=== PATIENT | male | born 1940 | race Caucasian/White ===

== ENCOUNTER 2017-12-07 16:51 | Emergency (ER) | payer MEDICARE, SELFPAY ==
[2017-12-07] MEDS ORDERED: Dexamethasone 4 MG TAB ONE (17:01)
[2017-12-07] MEDS ORDERED: Nystatin Cream 15 GM TUBE TOP PRN (17:27)
== END 2017-12-07 19:05 | disposition home or self-care (01) ==
LOC: MADERS 16:51
DX: B37.2 Candidiasis of skin and nail (principal); I11.0 Hypertensive heart disease with heart failure; I50.9 Heart failure, unspecified; E11.9 Type 2 diabetes mellitus without complications; M10.9 Gout, unspecified; E66.9 Obesity, unspecified; J44.9 Chronic obstructive pulmonary disease, unspecified
CPT/HCPCS: 99283; J8540

== ENCOUNTER 2017-12-20 12:49 | Emergency (ER) | payer MEDICARE ==
[2017-12-20] MEDS ORDERED: Dexamethasone 4 MG TAB ONE (13:11)
--- NOTE | 2017-12-20 14:11 | RAD ---
UPRIGHT PORTABLE CHEST 1 VIEW: Date: 12/20/17 HISTORY: 77-year-old male with history of dyspnea. FINDINGS: There is some underexposure and some motion artifact. There is elevation of the left hemidiaphragm. H eart size is upper range of normal. There appears to be some mild vascular congestion. No confluent p neumonia or overt edema. IMPRESSION: Somewhat less than optimal exposure with minimal motion artifact, as well as limitation because of la rge body habitus. Minimal left hemidiaphragm elevation. Mild vascular congestion, but no significant acute process. POS: [facility]
== END 2017-12-20 14:50 | disposition home or self-care (01) ==
LOC: MADERS 12:49
DX: J44.1 Chronic obstructive pulmonary disease with (acute) exacerbation (principal); I50.9 Heart failure, unspecified; E11.9 Type 2 diabetes mellitus without complications; I11.0 Hypertensive heart disease with heart failure; M10.9 Gout, unspecified; E66.9 Obesity, unspecified
CPT/HCPCS: 71045; J7620; J8540

== ENCOUNTER 2018-12-17 10:58 | Emergency (ER) | payer MEDICARE, MEDICAID ==
[2018-12-17 11:46] LABS: Bilirubin Negative (Negative); Blood, Urine Negative (Negative); Glucose, Urine (Dipstick) Negative (Negative); Leukocyte Trace (Negative); Nitrite Negative (Negative); Protein, Urine (Dipstick) Negative (Neg-Trace); Specific Gravity, Urine 1.015 (1.005-1.030); Urobilinogen 0.2 mg/dL (0.2-1.0)
[2018-12-17 11:51] LABS: #Basophils 0.1 thou/uL (0.0-0.2); #Eosinphils 0.3 thou/uL (0.0-0.7); #Lymphocytes 2.2 thou/uL (1.20-3.40); #Monocytes 0.6 thou/uL (0.11-0.59); %Eosinophils 4.1 % (0.0-10.0); %Lymphocytes 26.5 % (21.0-51.0); %Monocytes 7.8 % (0.0-10.0); %Neutrophils 60.7 % (42.0-75.0); Hemoglobin 13.7 g/dL (14.0-18.0); Mean Corpuscular HGB CONC 30.1 g/dL (32.0-36.0); Mean Corpuscular Hemoglobin 26.6 pg (27.0-31.0); Mean Corpuscular Volume 88.5 fL (78.0-98.0); Platelet Count 195 thou/uL (130-400); RBC Distribution Width 13.9 % (11.5-14.5); Red Blood Cell (RBC) Count 5.16 mill/uL (4.70-6.10); White Blood Cell (WBC) Count 8.3 thou/uL (4.8-10.8)
[2018-12-17] MEDS ORDERED: Iopamidol 370 76% 100 ML VIAL ONE (11:55)
[2018-12-17 11:56] LABS: Clarity Hazy (Clear)
[2018-12-17 11:58] LABS: Bacteria/HPF Rare-Few HPF (None Seen); RBC/HPF 0-3 HPF (0-3); Squamous Epithelial 0-3 HPF (0-3)
[2018-12-17 12:08] LABS: ALT (SGPT) 29 U/L (8-55); AST (SGOT) 25 U/L (5-34); Alkaline Phosphatase 99 U/L (40-150); Anion Gap 15 mmol/L (10-20); BUN (Urea Nitrogen) 17 mg/dL (8.4-25.7); Bilirubin, Total 0.6 mg/dL (0.2-1.2); Calc. Creatinine Clearance 0 mL/min (70-130); Calcium 9.2 mg/dL (7.8-10.44); Carbon Dioxide 26 mmol/L (23-31); Chloride 103 mmol/L (98-107); Estimated GFR-MDRD 69; Globulin 3.4 g/dL (2.4-3.5); Glucose 138 mg/dL (83-110); Lipase 52 U/L (8-78); Protein, Total 7.4 g/dL (5.8-8.1); Sodium 140 mmol/L (136-145)
--- NOTE | 2018-12-17 16:44 | CT ---
CT OF THE ABDOMEN AND PELVIS WITH IV CONTRAST: 12/17/18 INDICATION: Abdominal pain, constipation. COMPARISON: None. FINDINGS: There is subsegmental atelectasis within both lung bases. There is diffuse fatty liver. The pancreas, adrenal glands and spleen appear within normal limits. Th ere are small calcified granulomas within the spleen. The right kidney is normal appearing. There is a 2.1 cm hypodensity that does not have postcontrast CT Hounsfield characteristics of a simp le cyst. There is a simple cyst involving the superior pole left kidney measuring 1.7 cm. Other tiny hypodensity within the superior pole of the left kidney that cannot be further characterized due to their size. There are mild vascular calcifications involving the abdominal and pelvic vasculature. The bladder is partially decompressed. There is scattered diverticula involving the colon. No active diverticulitis is evident. There is a n ormal appendix in the right lower quadrant. Small bowel is normal appearing. There is a fat containin g umbilical hernia. No free fluid is evident. There is scattered degenerative and osteoarthritic change. There is diffuse osteopenia. IMPRESSION: 1. Left posterior mid renal hypodensity cannot be further characterized. Renal ultrasound is rec ommended. Complex cyst versus complex cystic mass cannot be entirely excluded. Simple cyst is seen wi thin the superior pole of the left kidney. 2. Fatty liver. 3. Colonic diverticulosis without evidence of active diverticulitis. 4. Small hiatal hernia. POS: [facility]
== END 2018-12-17 17:01 | disposition home or self-care (01) ==
LOC: MADERS 10:58
DX: K59.00 Constipation, unspecified (principal); E11.9 Type 2 diabetes mellitus without complications; I11.0 Hypertensive heart disease with heart failure; I50.9 Heart failure, unspecified; E66.9 Obesity, unspecified; M10.9 Gout, unspecified; J44.9 Chronic obstructive pulmonary disease, unspecified
CPT/HCPCS: 74177; 80053; 81003; 81015; 83605; 83690; 84484; 85025; 87086; 93005; Q9967

== ENCOUNTER 2019-01-11 08:50 | Emergency (ER) | payer MEDICARE, MEDICAID ==
[2019-01-11 09:23] LABS: #Eosinphils 0.5 thou/uL (0.0-0.7); #Monocytes 0.6 thou/uL (0.11-0.59); #Neutrophils 4.7 thou/uL (1.40-6.50); %Basophils 0.5 % (0.0-1.0); %Eosinophils 6.7 % (0.0-10.0); %Lymphocytes 25.1 % (21.0-51.0); %Monocytes 7.6 % (0.0-10.0); Hemoglobin 13.4 g/dL (14.0-18.0); Mean Corpuscular HGB CONC 30.3 g/dL (32.0-36.0); Mean Corpuscular Hemoglobin 26.4 pg (27.0-31.0); Mean Corpuscular Volume 87.3 fL (78.0-98.0); Mean Platelet Volume 10.4 fL (7.4-10.4); Platelet Count 186 thou/uL (130-400); RBC Distribution Width 13.9 % (11.5-14.5); Red Blood Cell (RBC) Count 5.07 mill/uL (4.70-6.10); White Blood Cell (WBC) Count 7.8 thou/uL (4.8-10.8)
[2019-01-11 09:26] LABS: Bilirubin Negative (Negative); Blood, Urine Negative (Negative); Clarity Clear (Clear); Glucose, Urine (Dipstick) Negative (Negative); Leukocyte Small (Negative); Nitrite Negative (Negative); Protein, Urine (Dipstick) Negative (Neg-Trace); Specific Gravity, Urine 1.015 (1.005-1.030); Urobilinogen 0.2 mg/dL (0.2-1.0)
[2019-01-11 09:32] LABS: Bacteria/HPF Rare-Few HPF (None Seen); RBC/HPF 0-3 HPF (0-3); Squamous Epithelial 0-3 HPF (0-3)
--- NOTE | 2019-01-11 09:42 | RAD ---
PORTABLE CHEST 1 VIEW: Date: 01/11/19 Time: 0916 hours HISTORY: Cough. FINDINGS: Comparison made with exam of 12/20/17. The heart size is upper limits of normal. Lungs are well expanded without lobar consolidation, pneumo thoraces, kishore pulmonary edema, or pleural effusions. IMPRESSION: No acute process. POS: [facility]
[2019-01-11 09:43] LABS: ALT (SGPT) 12 U/L (8-55); AST (SGOT) 13 U/L (5-34); Albumin 3.9 g/dL (3.4-4.8); Alkaline Phosphatase 82 U/L (40-150); Anion Gap 13 mmol/L (10-20); BUN (Urea Nitrogen) 18 mg/dL (8.4-25.7); Bilirubin, Total 0.3 mg/dL (0.2-1.2); Calc. Creatinine Clearance 0 mL/min (70-130); Calcium 8.9 mg/dL (7.8-10.44); Carbon Dioxide 28 mmol/L (23-31); Chloride 102 mmol/L (98-107); Estimated GFR-MDRD 63; Glucose 145 mg/dL (83-110); Lipase 62 U/L (8-78); Potassium 4.4 mmol/L (3.5-5.1); Protein, Total 6.9 g/dL (5.8-8.1); Sodium 139 mmol/L (136-145)
--- NOTE | 2019-01-11 10:19 | CT ---
CT ABDOMEN AND PELVIS WITHOUT CONTRAST: Date: 01/11/19 HISTORY: Bilateral lower quadrant abdominal pain and constipation. COMPARISON: Contrast enhanced CT scan of 12/17/18. FINDINGS: There are minimal dependent changes of the lung bases. A small hiatal hernia is again seen. Fatty inf iltration of the liver is redemonstrated. No calcified gallstones are seen. No free air or free fluid is noted in the abdomen or pelvis. No calculi seen in the kidneys, ureters, or the urinary bladder. No hydroureteronephrosis is noted on either side. Cysts in the left kidney are again seen. There is colonic diverticulosis without evidence of diverticulitis. Vascular calcifications are prese nt without evidence of aneurysmal dilatation of the abdominal aorta. There are degenerative changes i n the spine. A fat-containing small ventral hernia is again seen. IMPRESSION: 1. No CT evidence of urinary tract calculi or obstruction. 2. Left renal cysts. 3. Colonic diverticulosis. 4. Small hiatal hernia. 5. Fatty liver. 6. Fat-containing small ventral hernia. POS: OFF
[2019-01-11] MEDS ORDERED: Ciprofloxacin 500 MG TAB ONE (10:51)
== END 2019-01-11 15:45 | disposition home or self-care (01) ==
LOC: MADERS 08:50
DX: N39.0 Urinary tract infection, site not specified (principal); I11.0 Hypertensive heart disease with heart failure; I50.9 Heart failure, unspecified; D64.9 Anemia, unspecified; M10.9 Gout, unspecified; E11.9 Type 2 diabetes mellitus without complications; J44.9 Chronic obstructive pulmonary disease, unspecified; E66.9 Obesity, unspecified; Z79.84 Long term (current) use of oral hypoglycemic drugs; Z79.899 Other long term (current) drug therapy
CPT/HCPCS: 71045; 74176; 80053; 81003; 81015; 83690; 83880; 84484; 85025; 87077; 87086; 93005; J7620

== ENCOUNTER 2019-02-08 14:10 | Emergency (ER) | payer MEDICARE, OTHER ==
[2019-02-08 14:54] LABS: #Basophils 0.1 thou/uL (0.0-0.2); #Eosinphils 0.3 thou/uL (0.0-0.7); #Lymphocytes 2.4 thou/uL (1.20-3.40); #Monocytes 0.6 thou/uL (0.11-0.59); #Neutrophils 4.5 thou/uL (1.40-6.50); %Basophils 0.7 % (0.0-1.0); %Eosinophils 4.3 % (0.0-10.0); %Lymphocytes 30.1 % (21.0-51.0); %Monocytes 7.6 % (0.0-10.0); %Neutrophils 57.3 % (42.0-75.0); Hemoglobin 14.1 g/dL (14.0-18.0); Mean Corpuscular HGB CONC 29.9 g/dL (32.0-36.0); Mean Corpuscular Hemoglobin 26.2 pg (27.0-31.0); Mean Corpuscular Volume 87.6 fL (78.0-98.0); Mean Platelet Volume 9.5 fL (7.4-10.4); Platelet Count 192 thou/uL (130-400); RBC Distribution Width 13.9 % (11.5-14.5); Red Blood Cell (RBC) Count 5.37 mill/uL (4.70-6.10); White Blood Cell (WBC) Count 7.9 thou/uL (4.8-10.8)
[2019-02-08 14:58] LABS: Bilirubin Negative (Negative); Blood, Urine Trace (Negative); Clarity Hazy (Clear); Glucose, Urine (Dipstick) Negative (Negative); Leukocyte Small (Negative); Nitrite Negative (Negative); Protein, Urine (Dipstick) Negative (Neg-Trace); Urobilinogen 0.2 mg/dL (Less than 2)
[2019-02-08 15:01] LABS: Bacteria/HPF Rare-Few HPF (None Seen); RBC/HPF 0-3 HPF (0-3); Squamous Epithelial 0-3 HPF (0-3)
--- NOTE | 2019-02-08 15:06 | RAD ---
EXAM: CHEST ONE VIEW: 02/08/19 HISTORY: Cough. COMPARISON: 01/11/19. FINDINGS: Extensive horizontal linear artifact lowers the sensitivity of this study. Mild bilateral vascular co ngestion. No confluent pneumonia, overt edema, or pleural effusion. IMPRESSION: Evidence for bilateral vascular congestion, stable from prior study. No significant new process. POS: [facility]
[2019-02-08 15:11] LABS: ALT (SGPT) 10 U/L (8-55); AST (SGOT) 14 U/L (5-34); Alkaline Phosphatase 86 U/L (40-150); Anion Gap 18 mmol/L (10-20); BUN (Urea Nitrogen) 24 mg/dL (8.4-25.7); Bilirubin, Total 0.3 mg/dL (0.2-1.2); CK (CPK) 161 U/L (30-200); Calc. Creatinine Clearance 0 mL/min (70-130); Carbon Dioxide 27 mmol/L (23-31); Chloride 102 mmol/L (98-107); Estimated GFR-MDRD 49; Globulin 3.2 g/dL (2.4-3.5); Glucose 114 mg/dL (83-110); Lipase 59 U/L (8-78); Potassium 4.5 mmol/L (3.5-5.1); Protein, Total 7.2 g/dL (5.8-8.1); Sodium 142 mmol/L (136-145)
[2019-02-08] MEDS ORDERED: cefTRIAXone\\ROCEPHIN 1 GM VIAL ONE (15:26)
[2019-02-08] MEDS ORDERED: Lidocaine 1% 20 ML MDV ONE (15:27)
== END 2019-02-08 17:45 | disposition home or self-care (01) ==
LOC: MADERS 14:10
DX: N39.0 Urinary tract infection, site not specified (principal); R53.1 Weakness; I11.0 Hypertensive heart disease with heart failure; I50.9 Heart failure, unspecified; E66.9 Obesity, unspecified; E11.9 Type 2 diabetes mellitus without complications; J44.9 Chronic obstructive pulmonary disease, unspecified; Z79.899 Other long term (current) drug therapy; Z79.84 Long term (current) use of oral hypoglycemic drugs
CPT/HCPCS: 36415; 71045; 80053; 81003; 81015; 82550; 83605; 83690; 84484; 85025; 87077; 87086; 87186; 93005; 96372; J0696; J2001

== ENCOUNTER 2019-02-18 10:50 | Emergency (ER) | payer MEDICARE, MEDICAID ==
[2019-02-18 11:14] LABS: Bilirubin Negative (Negative); Blood, Urine Negative (Negative); Clarity Clear (Clear); Glucose, Urine (Dipstick) Negative (Negative); Leukocyte Small (Negative); Nitrite Negative (Negative); Protein, Urine (Dipstick) Negative (Neg-Trace); Urobilinogen 0.2 mg/dL (Less than 2)
--- NOTE | 2019-02-18 11:21 | RAD ---
XR Chest 1 View Portable History: Cough Comparison: Radiograph February 08, 2019 Findings: Heart size continues to be enlarged. Mild pulmonary venous congestion. No pneumothorax. No significant effusion. No acute osseous abnormality. Impression: Similar examination of the chest.
[2019-02-18 11:35] LABS: RBC/HPF 0-3 HPF (0-3)
[2019-02-18 11:36] LABS: Bacteria/HPF 1+ HPF (None Seen); Squamous Epithelial 0-3 HPF (0-3)
[2019-02-18 11:43] LABS: #Eosinphils 0.3 thou/uL (0.0-0.7); #Lymphocytes 2.1 thou/uL (1.20-3.40); #Monocytes 0.6 thou/uL (0.11-0.59); #Neutrophils 4.2 thou/uL (1.40-6.50); %Basophils 0.5 % (0.0-1.0); %Eosinophils 4.5 % (0.0-10.0); %Lymphocytes 29.2 % (21.0-51.0); %Monocytes 8.2 % (0.0-10.0); %Neutrophils 57.6 % (42.0-75.0); Hemoglobin 13.1 g/dL (14.0-18.0); Mean Corpuscular HGB CONC 30.9 g/dL (32.0-36.0); Mean Corpuscular Hemoglobin 26.7 pg (27.0-31.0); Mean Corpuscular Volume 86.6 fL (78.0-98.0); Mean Platelet Volume 9.4 fL (7.4-10.4); Platelet Count 174 thou/uL (130-400); RBC Distribution Width 13.9 % (11.5-14.5); Red Blood Cell (RBC) Count 4.89 mill/uL (4.70-6.10); White Blood Cell (WBC) Count 7.3 thou/uL (4.8-10.8)
[2019-02-18 11:58] LABS: ALT (SGPT) 17 U/L (8-55); AST (SGOT) 15 U/L (5-34); Albumin 3.8 g/dL (3.4-4.8); Alkaline Phosphatase 79 U/L (40-150); Anion Gap 15 mmol/L (10-20); BUN (Urea Nitrogen) 17 mg/dL (8.4-25.7); Bilirubin, Total 0.5 mg/dL (0.2-1.2); Calc. Creatinine Clearance 0 mL/min (70-130); Calcium 8.9 mg/dL (7.8-10.44); Carbon Dioxide 26 mmol/L (23-31); Chloride 105 mmol/L (98-107); Estimated GFR-MDRD 68; Globulin 2.9 g/dL (2.4-3.5); Glucose 145 mg/dL (83-110); Protein, Total 6.7 g/dL (5.8-8.1); Sodium 142 mmol/L (136-145)
== END 2019-02-18 13:47 | disposition home or self-care (01) ==
LOC: MADERS 10:50
DX: N39.0 Urinary tract infection, site not specified (principal); I11.0 Hypertensive heart disease with heart failure; E11.9 Type 2 diabetes mellitus without complications; I50.9 Heart failure, unspecified; E66.9 Obesity, unspecified; J44.9 Chronic obstructive pulmonary disease, unspecified; Z79.899 Other long term (current) drug therapy; Z79.891 Long term (current) use of opiate analgesic; Z79.84 Long term (current) use of oral hypoglycemic drugs
CPT/HCPCS: 36415; 71045; 80053; 81003; 81015; 83605; 83880; 84484; 85025; 87040; 87086; 93005; 94760

== ENCOUNTER 2019-03-01 20:56 | Emergency (ER) | payer MEDICARE, MEDICAID ==
[2019-03-01] MEDS ORDERED: Ondansetron ODT 4 MG TAB ONE (21:13)
[2019-03-01 21:29] LABS: Bilirubin Negative (Negative); Blood, Urine Negative (Negative); Clarity Clear (Clear); Glucose, Urine (Dipstick) Negative (Negative); Leukocyte Negative (Negative); Nitrite Negative (Negative); Protein, Urine (Dipstick) Negative (Neg-Trace); Urobilinogen 0.2 mg/dL (Less than 2)
[2019-03-01 21:29] LABS: #Basophils 0.1 thou/uL (0.0-0.2); #Eosinphils 0.5 thou/uL (0.0-0.7); #Lymphocytes 2.5 thou/uL (1.20-3.40); #Monocytes 0.7 thou/uL (0.11-0.59); %Basophils 0.9 % (0.0-1.0); %Eosinophils 5.2 % (0.0-10.0); %Lymphocytes 28.2 % (21.0-51.0); %Monocytes 8.2 % (0.0-10.0); %Neutrophils 57.6 % (42.0-75.0); Hemoglobin 12.9 g/dL (14.0-18.0); Mean Corpuscular HGB CONC 31.1 g/dL (32.0-36.0); Mean Platelet Volume 10.8 fL (7.4-10.4); Platelet Count 164 thou/uL (130-400); RBC Distribution Width 14.4 % (11.5-14.5); Red Blood Cell (RBC) Count 4.76 mill/uL (4.70-6.10); White Blood Cell (WBC) Count 8.7 thou/uL (4.8-10.8)
[2019-03-01 21:43] LABS: ALT (SGPT) 10 U/L (8-55); AST (SGOT) 14 U/L (5-34); Albumin 3.8 g/dL (3.4-4.8); Alkaline Phosphatase 73 U/L (40-150); Anion Gap 17 mmol/L (10-20); BUN (Urea Nitrogen) 28 mg/dL (8.4-25.7); Bilirubin, Total 0.2 mg/dL (0.2-1.2); Calc. Creatinine Clearance 0 mL/min (70-130); Calcium 9.1 mg/dL (7.8-10.44); Carbon Dioxide 25 mmol/L (23-31); Chloride 103 mmol/L (98-107); Estimated GFR-MDRD 41; Globulin 3.2 g/dL (2.4-3.5); Glucose 152 mg/dL (83-110); Lipase 72 U/L (8-78); Potassium 4.7 mmol/L (3.5-5.1); Sodium 140 mmol/L (136-145)
== END 2019-03-01 22:00 | disposition home or self-care (01) ==
LOC: MADERS 20:56
DX: E86.0 Dehydration (principal); R11.0 Nausea; M10.9 Gout, unspecified; E11.9 Type 2 diabetes mellitus without complications; I11.0 Hypertensive heart disease with heart failure; I50.9 Heart failure, unspecified; E66.9 Obesity, unspecified; J44.9 Chronic obstructive pulmonary disease, unspecified; Z79.899 Other long term (current) drug therapy; Z79.84 Long term (current) use of oral hypoglycemic drugs; Z79.51 Long term (current) use of inhaled steroids
CPT/HCPCS: 36415; 80053; 81003; 83690; 85025; 99284; Q0162

== ENCOUNTER → 2019-03-23 | Emergency (ER) | payer MEDICARE, MEDICAID ==
[~2019-03-23] MED LIST: predniSONE 20 MG TAB ONE
[2019-03-23 01:45] LABS: #Basophils 0.1 thou/uL (0.0-0.2); #Eosinphils 0.5 thou/uL (0.0-0.7); #Monocytes 0.6 thou/uL (0.11-0.59); %Basophils 0.9 % (0.0-1.0); %Eosinophils 4.6 % (0.0-10.0); %Lymphocytes 29.4 % (21.0-51.0); %Monocytes 6.1 % (0.0-10.0); %Neutrophils 59.1 % (42.0-75.0); Hemoglobin 14.1 g/dL (14.0-18.0); Mean Corpuscular Hemoglobin 26.9 pg (27.0-31.0); Mean Corpuscular Volume 86.8 fL (78.0-98.0); Mean Platelet Volume 11.2 fL (7.4-10.4); Platelet Count 184 thou/uL (130-400); RBC Distribution Width 14.5 % (11.5-14.5); Red Blood Cell (RBC) Count 5.25 mill/uL (4.70-6.10); White Blood Cell (WBC) Count 10.2 thou/uL (4.8-10.8)
[2019-03-23 02:05] LABS: ALT (SGPT) 15 U/L (8-55); AST (SGOT) 16 U/L (5-34); Albumin 4.1 g/dL (3.4-4.8); Alkaline Phosphatase 95 U/L (40-150); Anion Gap 19 mmol/L (10-20); BUN (Urea Nitrogen) 18 mg/dL (8.4-25.7); Bilirubin, Total 0.5 mg/dL (0.2-1.2); CK (CPK) 198 U/L (30-200); Calc. Creatinine Clearance 0 mL/min (70-130); Calcium 8.9 mg/dL (7.8-10.44); Carbon Dioxide 22 mmol/L (23-31); Chloride 103 mmol/L (98-107); Estimated GFR-MDRD 56; Globulin 2.9 g/dL (2.4-3.5); Glucose 163 mg/dL (83-110); Lipase 44 U/L (8-78); Potassium 3.8 mmol/L (3.5-5.1); Sodium 140 mmol/L (136-145)
--- NOTE | 2019-03-23 08:15 | RAD ---
EXAM: Single view of the chest HISTORY: Dyspnea COMPARISON: 02/18/2019 FINDINGS: Single view of the chest shows a normal sized cardiomediastinal silhouette. There is no juanito dence of consolidation, mass, or pleural effusion. The bones are unremarkable. IMPRESSION: No evidence of acute cardiopulmonary disease
== END ==
LOC: MADERS 01:04
DX: J44.1 Chronic obstructive pulmonary disease with (acute) exacerbation (principal); I11.0 Hypertensive heart disease with heart failure; I50.9 Heart failure, unspecified; E11.9 Type 2 diabetes mellitus without complications; E66.9 Obesity, unspecified; Z79.899 Other long term (current) drug therapy; Z79.84 Long term (current) use of oral hypoglycemic drugs
CPT/HCPCS: 71045; 80053; 82550; 83690; 83880; 84484; 85025; J7512; J7620

== ENCOUNTER 2019-05-03 02:25 | Emergency (ER) | payer MEDICARE, MEDICAID ==
[2019-05-03 03:35] LABS: Bilirubin Negative (Negative); Blood, Urine Trace (Negative); Clarity Slightly Cloudy (Clear); Glucose, Urine (Dipstick) Negative (Negative); Leukocyte Moderate (Negative); Nitrite Positive (Negative); Protein, Urine (Dipstick) Negative (Neg-Trace); RBC/HPF 0-3 HPF (0-3); Squamous Epithelial 0-3 HPF (0-3); Urobilinogen 0.2 mg/dL (Less than 2); WBC/HPF 21-50 HPF (0-3)
[2019-05-03 03:36] LABS: Bacteria/HPF 3+ HPF (None Seen)
== END 2019-05-03 10:20 | disposition home or self-care (01) ==
LOC: MADERS 02:25
DX: N39.0 Urinary tract infection, site not specified (principal); I11.0 Hypertensive heart disease with heart failure; I50.9 Heart failure, unspecified; E11.9 Type 2 diabetes mellitus without complications; J44.9 Chronic obstructive pulmonary disease, unspecified; M10.9 Gout, unspecified; E66.9 Obesity, unspecified; Z79.899 Other long term (current) drug therapy; Z79.84 Long term (current) use of oral hypoglycemic drugs
CPT/HCPCS: 81003; 81015; 99284; J7620

== ENCOUNTER 2019-07-20 08:54 | Emergency (ER) | payer MEDICAID, MEDICARE ==
[2019-07-20] MEDS ORDERED: predniSONE 20 MG TAB ONE (10:03)
--- NOTE | 2019-07-20 10:19 | RAD ---
EXAM: Single view of the chest HISTORY: Cough COMPARISON: 03/23/2019 FINDINGS: Single view of the chest shows a normal sized cardiomediastinal silhouette. There is no juanito dence of consolidation, mass, or pleural effusion. The bones are unremarkable. IMPRESSION: No evidence of acute cardiopulmonary disease
[2019-07-20 11:30] LABS: Bilirubin Negative (Negative); Blood, Urine Trace (Negative); Clarity Slightly Cloudy (Clear); Glucose, Urine (Dipstick) Negative (Negative); Leukocyte Moderate (Negative); Nitrite Positive (Negative); Protein, Urine (Dipstick) Negative (Neg-Trace); Urobilinogen 0.2 mg/dL (Less than 2)
[2019-07-20 11:38] LABS: Bacteria/HPF 4+ HPF (None Seen); RBC/HPF 0-3 HPF (0-3); Squamous Epithelial 0-3 HPF (0-3); WBC/HPF Greater Than 50 HPF (0-3)
== END 2019-07-20 11:40 | disposition home or self-care (01) ==
LOC: MADERS 08:54
DX: J44.1 Chronic obstructive pulmonary disease with (acute) exacerbation (principal); N39.0 Urinary tract infection, site not specified; I11.0 Hypertensive heart disease with heart failure; I50.9 Heart failure, unspecified; E11.9 Type 2 diabetes mellitus without complications; E66.9 Obesity, unspecified; Z79.84 Long term (current) use of oral hypoglycemic drugs; Z79.51 Long term (current) use of inhaled steroids; Z79.899 Other long term (current) drug therapy
CPT/HCPCS: 71045; 81003; 81015; 87077; 87086; 87186; 87804; 94640; J7512; J7620

== ENCOUNTER 2019-09-22 20:19 | Emergency (ER) | payer MEDICARE ==
[2019-09-22 22:36] LABS: INR-International Normal Ratio 1.1; Prothrombin Time 14.3 SEC (12.0-14.7)
[2019-09-22 22:41] LABS: #Basophils 0.1 thou/uL (0.0-0.2); #Eosinphils 0.4 thou/uL (0.0-0.7); #Lymphocytes 1.9 thou/uL (1.20-3.40); #Monocytes 0.8 thou/uL (0.11-0.59); #Neutrophils 6.5 thou/uL (1.40-6.50); %Basophils 0.7 % (0.0-1.0); %Eosinophils 3.9 % (0.0-10.0); %Lymphocytes 19.3 % (21.0-51.0); %Monocytes 8.1 % (0.0-10.0); Hemoglobin 12.4 g/dL (14.0-18.0); Hypochromia SLIGHT = 6-15 cells (100X) (0-5/hpf); MDiff Complete? YES; Mean Corpuscular Hemoglobin 26.5 pg (27.0-31.0); Mean Corpuscular Volume 88.4 fL (78.0-98.0); Mean Platelet Volume 9.9 fL (7.4-10.4); Platelet Count 179 thou/uL (130-400); Platelet Morphology Comment Appears Adequate; RBC Distribution Width 13.2 % (11.5-14.5); Red Blood Cell (RBC) Count 4.67 mill/uL (4.70-6.10); Stomatocytes SLIGHT = 2-5 cells (100X) (0-1/hpf); White Blood Cell (WBC) Count 9.6 thou/uL (4.8-10.8)
[2019-09-22 22:47] LABS: ALT (SGPT) 16 U/L (8-55); AST (SGOT) 12 U/L (5-34); Albumin 3.7 g/dL (3.4-4.8); Alkaline Phosphatase 71 U/L (40-110); Anion Gap 17 mmol/L (10-20); BUN (Urea Nitrogen) 49 mg/dL (8.4-25.7); Bilirubin, Total 0.3 mg/dL (0.2-1.2); Calc. Creatinine Clearance 0 mL/min (70-130); Calcium 8.9 mg/dL (7.8-10.44); Carbon Dioxide 23 mmol/L (23-31); Chloride 105 mmol/L (98-107); Estimated GFR-MDRD 18; Glucose 152 mg/dL (83-110); Potassium 4.5 mmol/L (3.5-5.1); Protein, Total 6.7 g/dL (5.8-8.1); Sodium 140 mmol/L (136-145)
== END 2019-09-23 01:40 | disposition short-term general hospital (02) ==
LOC: MADERS 20:19
DX: I11.0 Hypertensive heart disease with heart failure (principal); I50.9 Heart failure, unspecified; N17.9 Acute kidney failure, unspecified; E11.9 Type 2 diabetes mellitus without complications; J44.9 Chronic obstructive pulmonary disease, unspecified; M10.9 Gout, unspecified; Z87.891 Personal history of nicotine dependence; Z79.899 Other long term (current) drug therapy; Z79.84 Long term (current) use of oral hypoglycemic drugs
CPT/HCPCS: 80053; 83880; 85025; 85610; 99285

== ENCOUNTER 2019-10-14 17:59 | Emergency (ER) | payer MEDICARE ==
[~2019-10-14 17:59] MED LIST changes: +Sodium Chloride 0.9% 1,000 ML BAG ONE; -predniSONE 20 MG TAB ONE
[2019-10-14 19:03] LABS: #Basophils 0.1 thou/uL (0.0-0.2); #Lymphocytes 2.1 thou/uL (1.20-3.40); #Monocytes 0.8 thou/uL (0.11-0.59); #Neutrophils 6.6 thou/uL (1.40-6.50); %Basophils 1.4 % (0.0-1.0); %Lymphocytes 21.5 % (21.0-51.0); %Monocytes 8.5 % (0.0-10.0); %Neutrophils 68.7 % (42.0-75.0); Hemoglobin 12.5 g/dL (14.0-18.0); Mean Corpuscular HGB CONC 29.5 g/dL (32.0-36.0); Mean Corpuscular Hemoglobin 26.5 pg (27.0-31.0); Mean Corpuscular Volume 89.8 fL (78.0-98.0); Platelet Count 206 thou/uL (130-400); RBC Distribution Width 13.6 % (11.5-14.5); Red Blood Cell (RBC) Count 4.73 mill/uL (4.70-6.10); White Blood Cell (WBC) Count 9.6 thou/uL (4.8-10.8)
[2019-10-14 19:16] LABS: ALT (SGPT) 13 U/L (8-55); AST (SGOT) 12 U/L (5-34); Albumin 3.7 g/dL (3.4-4.8); Alkaline Phosphatase 77 U/L (40-110); Anion Gap 21 mmol/L (10-20); BUN (Urea Nitrogen) 41 mg/dL (8.4-25.7); Bilirubin, Total 0.4 mg/dL (0.2-1.2); Calc. Creatinine Clearance 0 mL/min (70-130); Calcium 8.8 mg/dL (7.8-10.44); Carbon Dioxide 18 mmol/L (23-31); Chloride 104 mmol/L (98-107); Estimated GFR-MDRD 8; Globulin 3.2 g/dL (2.4-3.5); Glucose 154 mg/dL (83-110); Lipase 46 U/L (8-78); Potassium 4.5 mmol/L (3.5-5.1); Protein, Total 6.9 g/dL (5.8-8.1); Sodium 138 mmol/L (136-145)
[2019-10-14 20:50] LABS: Digoxin 2.43 ng/mL (0.8-2.0)
== END 2019-10-14 21:15 | disposition short-term general hospital (02) ==
LOC: MADERS 17:59
DX: R10.9 Unspecified abdominal pain (principal); T46.0X5A Adverse effect of cardiac-stimulant glycosides and drugs of similar action, initial encounter; N17.9 Acute kidney failure, unspecified; I11.0 Hypertensive heart disease with heart failure; I50.9 Heart failure, unspecified; J45.909 Unspecified asthma, uncomplicated; M10.9 Gout, unspecified; Z87.891 Personal history of nicotine dependence; Z79.84 Long term (current) use of oral hypoglycemic drugs; Z79.899 Other long term (current) drug therapy
CPT/HCPCS: 80053; 80162; 82150; 83690; 85025; 93005; 96360; 96361; J7050

== ENCOUNTER 2019-12-26 12:11 | Emergency (ER) | payer MEDICARE ==
[2019-12-26 12:58] LABS: Bilirubin Negative (Negative); Blood, Urine Negative (Negative); Glucose, Urine (Dipstick) Negative (Negative); Leukocyte Small (Negative); Nitrite Negative (Negative); Protein, Urine (Dipstick) Negative (Neg-Trace); Urobilinogen 0.2 mg/dL (Less than 2)
[2019-12-26 13:00] LABS: #Eosinphils 0.4 thou/uL (0.0-0.7); #Monocytes 0.6 thou/uL (0.11-0.59); #Neutrophils 4.1 thou/uL (1.40-6.50); %Basophils 0.5 % (0.0-1.0); %Lymphocytes 27.8 % (21.0-51.0); %Monocytes 8.8 % (0.0-10.0); %Neutrophils 57.8 % (42.0-75.0); Mean Corpuscular HGB CONC 29.9 g/dL (32.0-36.0); Mean Corpuscular Hemoglobin 26.5 pg (27.0-31.0); Mean Corpuscular Volume 88.7 fL (78.0-98.0); Mean Platelet Volume 11.3 fL (7.4-10.4); Platelet Count 209 thou/uL (130-400); RBC Distribution Width 13.6 % (11.5-14.5); White Blood Cell (WBC) Count 7.1 thou/uL (4.8-10.8)
[2019-12-26 13:02] LABS: Clarity Hazy (Clear)
[2019-12-26 13:04] LABS: Bacteria/HPF 1+ HPF (None Seen); RBC/HPF None Seen HPF (0-3); Squamous Epithelial 0-3 HPF (0-3); WBC/HPF 21-50 HPF (0-3)
[2019-12-26 13:16] LABS: ALT (SGPT) 13 U/L (8-55); AST (SGOT) 12 U/L (5-34); Albumin 3.7 g/dL (3.4-4.8); Alkaline Phosphatase 93 U/L (40-110); Anion Gap 12 mmol/L (10-20); BUN (Urea Nitrogen) 17 mg/dL (8.4-25.7); Bilirubin, Total 0.3 mg/dL (0.2-1.2); CK (CPK) 101 U/L (30-200); Calc. Creatinine Clearance 0 mL/min (70-130); Calcium 8.9 mg/dL (7.8-10.44); Carbon Dioxide 28 mmol/L (23-31); Chloride 103 mmol/L (98-107); Estimated GFR-MDRD 59; Globulin 3.2 g/dL (2.4-3.5); Glucose 253 mg/dL (83-110); Potassium 4.3 mmol/L (3.5-5.1); Protein, Total 6.9 g/dL (5.8-8.1); Sodium 139 mmol/L (136-145)
--- NOTE | 2019-12-26 14:41 | RAD ---
PORTABLE UPRIGHT FRONTAL CHEST RADIOGRAPH: Date: 12-26-2019 Comparison: 08-29-2019 History: Weakness FINDINGS: There is stable prominence of the cardiac silhouette and stable mild perihilar interstitial prominenc e. There is also stable mild pulmonary hyperinflation. No pneumothorax, pleural fluid, focal consolid ation or alveolar edema is noted. Detailed assessment is limited on the basis of portable technique, body habitus and horizontally oriented artifact. IMPRESSION: Grossly unchanged portable frontal chest radiograph. No lobar consolidation or alveolar edema. POS: [facility]
== END 2019-12-26 13:45 | disposition home or self-care (01) ==
LOC: MADERS 12:11
DX: N39.0 Urinary tract infection, site not specified (principal); E11.9 Type 2 diabetes mellitus without complications; I11.0 Hypertensive heart disease with heart failure; I50.9 Heart failure, unspecified; J44.9 Chronic obstructive pulmonary disease, unspecified; Z79.84 Long term (current) use of oral hypoglycemic drugs; Z79.899 Other long term (current) drug therapy
CPT/HCPCS: 36415; 71045; 80053; 81003; 81015; 82550; 83880; 84484; 85025; 87077; 87086; 87186; 93005

== ENCOUNTER 2020-01-26 04:28 | Emergency (ER) | payer MEDICARE ==
[2020-01-26 05:24] LABS: #Basophils 0.1 thou/uL (0.0-0.2); #Eosinphils 0.4 thou/uL (0.0-0.7); #Lymphocytes 2.5 thou/uL (1.20-3.40); #Monocytes 0.7 thou/uL (0.11-0.59); #Neutrophils 4.1 thou/uL (1.40-6.50); %Basophils 0.7 % (0.0-1.0); %Eosinophils 5.1 % (0.0-10.0); %Lymphocytes 32.4 % (21.0-51.0); %Monocytes 8.9 % (0.0-10.0); %Neutrophils 52.8 % (42.0-75.0); Mean Corpuscular Hemoglobin 26.7 pg (27.0-31.0); Mean Corpuscular Volume 88.8 fL (78.0-98.0); Mean Platelet Volume 11.6 fL (7.4-10.4); Platelet Count 209 thou/uL (130-400); RBC Distribution Width 13.5 % (11.5-14.5); Red Blood Cell (RBC) Count 5.23 mill/uL (4.70-6.10); White Blood Cell (WBC) Count 7.7 thou/uL (4.8-10.8)
[2020-01-26 05:39] LABS: Bilirubin Negative (Negative); Blood, Urine Negative (Negative); Clarity Clear (Clear); Glucose, Urine (Dipstick) Negative (Negative); Ketone, Urine Negative (Negative); Leukocyte Small (Negative); Nitrite Positive (Negative); Protein, Urine (Dipstick) Negative (Neg-Trace); Urobilinogen 0.2 mg/dL (Less than 2); pH, Urine 8.5 (5.0-9.0)
[2020-01-26 05:42] LABS: ALT (SGPT) 13 U/L (8-55); AST (SGOT) 15 U/L (5-34); Alkaline Phosphatase 98 U/L (40-110); Anion Gap 14 mmol/L (10-20); BUN (Urea Nitrogen) 16 mg/dL (8.4-25.7); Bilirubin, Total 0.2 mg/dL (0.2-1.2); Calc. Creatinine Clearance 0 mL/min (70-130); Calcium 9.1 mg/dL (7.8-10.44); Carbon Dioxide 28 mmol/L (23-31); Chloride 101 mmol/L (98-107); Globulin 3.2 g/dL (2.4-3.5); Glucose 174 mg/dL (83-110); Lipase 48 U/L (8-78); Potassium 4.3 mmol/L (3.5-5.1); Protein, Total 7.2 g/dL (5.8-8.1); Sodium 139 mmol/L (136-145)
[2020-01-26 05:47] LABS: RBC/HPF 0-3 HPF (0-3)
[2020-01-26 05:48] LABS: Bacteria/HPF 3+ HPF (None Seen); Squamous Epithelial 0-3 HPF (0-3); WBC/HPF 21-50 HPF (0-3)
[2020-01-26] MEDS ORDERED: Morphine 4 MG/ML VIAL ONE (06:26)
[2020-01-26] MEDS ORDERED: Sodium Chloride 0.9% 100 ML ONE (07:13)
[2020-01-26] MEDS ORDERED: cefTRIAXone\\ROCEPHIN 1 GM VIAL ONE (07:13)
--- NOTE | 2020-01-26 07:15 | CT ---
PRELIMINARY REPORT/[facility]/EMERGENCY AFTER HOURS PROCEDURE CT ABDOMEN PELVIS WO CON History: Supra pubic pain x 3 weeks with constipation Comparison: None Findings: Lung bases are clear. Osteopenia with degenerative changes throughout. No acute osseous abnormality. Prominent Schmorl's nodes involving the superior endplate of L5 inferior endplate of L4. Small to moderate hiatal hernia. Abdominal aorta is normal in caliber with atherosclerotic changes. Gallbladder is contracted. No biliary ductal dilatation. Liver, spleen, pancreas and adrenal glands are unremarkable. Ill-defined rounded hypodensities in the left kidney are incompletely evaluated without contrast. No evidence of ureteral calculus or hydronephrosis. Urinary bladder is underdistended with mild wall prominence. Correlate with UA. Prostate not enlarged. Calcifications are present. Appendix is noninflammatory. A normal caliber. No evidence of small bowel obstruction. There is diverticulosis of the colon without evidence of acute diverticulitis. No pericolonic infla mmation. Fat-containing umbilical hernia. No bowel herniation. Impression: 1. No CT evidence of acute appendicitis, small bowel obstruction or acute diverticulitis. Underdist ention of the colon limits evaluation. No focal pericolonic inflammation identified. 2. Mild wall prominence of the urinary bladder which is underdistended. Correlate with UA. No evid ence of hydronephrosis. Rounded hypodensities of the left kidney may represent cysts, however are incompletely characterized without contrast. Followup per final report recommendations. 3. Hiatal hernia. 4. Contracted gallbladder. No biliary ductal dilatation. 5. Additional findings, as above. ELECTRONICALLY SIGNED BY: James Lake DO Jan 26, 2020 6:44:14 AM CDT This report is intended for review by the ordering physician only, in accordance of law. If you recei ve this report in error, please call [facility] at [phone]. FINAL REPORT Exam: Abdomen CT without contrast Pelvic CT without contrast HISTORY: Suprapubic pain x3 weeks. Constipation. COMPARISON: 01/11/2019 FINDINGS: Abdomen CT: Lung bases:Chronic changes Heart size: Normal heart size Aorta: Normal caliber. Solid organs: Limited evaluation by the lack of intravenous contrast. Grossly no solid organ abnormal ity Lymph nodes: No gastrohepatic, retrocrural or periportal lymphadenopathy Gallbladder: No CT evidence of cholelithiasis or cholecystitis Mesentery: No mass, lymphadenopathy, free air or free fluid Kidneys: Bilaterally, no hydronephrosis, nephrolithiasis or perinephric fat stranding. Bilateral uret ers have a normal caliber. No hydroureter, periureteral fat stranding or ureterolithiasis. Stable left renal cyst. Alimentary canal: Limited evaluation by the lack of oral contrast. No bowel obstruction. Normal calib er appendix. Diverticulosis, without evidence of diverticulitis. No CT evidence of constipation. CT PELVIS: No mass, adenopathy, free air or free fluid. Urinary bladder: Unremarkable. Osseous structures: No lytic or blastic lesions IMPRESSION: 1. This report is in agreement with initial report by [facility]. 2. No acute abnormality in the abdomen or pelvis. Additional findings as detailed in the initial repo rt by [facility]. Transcribed Date/Time: 01/26/2020 8:30 AM
== END 2020-01-26 11:30 | disposition home or self-care (01) ==
LOC: MADERS 04:28
DX: N39.0 Urinary tract infection, site not specified (principal); I11.0 Hypertensive heart disease with heart failure; I50.9 Heart failure, unspecified; J44.9 Chronic obstructive pulmonary disease, unspecified; M10.9 Gout, unspecified; Z79.4 Long term (current) use of insulin; Z79.899 Other long term (current) drug therapy
CPT/HCPCS: 74176; 80053; 81003; 81015; 82274; 83605; 83690; 85025; 87077; 87086; 87186; 96365; 96375; J0696; J2270; J3490

== ENCOUNTER 2020-02-09 10:12 | Emergency (ER) | payer MEDICARE ==
--- NOTE | 2020-02-09 11:41 | CT ---
CT LUMBAR SPINE WITHOUT CONTRAST: Date: 02/09/2020 HISTORY: Low back pain, fall. FINDINGS/IMPRESSION: There are degenerative changes in the lumbar spine and the SI joints. No acute fracture or subluxatio n is identified. There are old fractures of the transverse processes of L1. POS: OFF
== END 2020-02-09 15:37 | disposition home or self-care (01) ==
LOC: MADERS 10:12
DX: M54.41 Lumbago with sciatica, right side (principal); E66.9 Obesity, unspecified; E11.9 Type 2 diabetes mellitus without complications; I11.0 Hypertensive heart disease with heart failure; I50.9 Heart failure, unspecified; J44.9 Chronic obstructive pulmonary disease, unspecified; M10.9 Gout, unspecified; Z79.899 Other long term (current) drug therapy; Z79.4 Long term (current) use of insulin
CPT/HCPCS: 72131

== ENCOUNTER 2020-02-16 09:21 | Emergency (ER) | payer MEDICARE ==
[2020-02-16 09:58] LABS: #Basophils 0.1 thou/uL (0.0-0.2); #Eosinphils 0.3 thou/uL (0.0-0.7); #Lymphocytes 2.4 thou/uL (1.20-3.40); #Monocytes 0.5 thou/uL (0.11-0.59); #Neutrophils 4.6 thou/uL (1.40-6.50); %Basophils 0.9 % (0.0-1.0); %Eosinophils 3.3 % (0.0-10.0); %Lymphocytes 30.7 % (21.0-51.0); %Monocytes 6.5 % (0.0-10.0); %Neutrophils 58.6 % (42.0-75.0); Hemoglobin 14.1 g/dL (14.0-18.0); Mean Corpuscular HGB CONC 29.6 g/dL (32.0-36.0); Mean Corpuscular Hemoglobin 25.9 pg (27.0-31.0); Mean Corpuscular Volume 87.4 fL (78.0-98.0); Mean Platelet Volume 11.6 fL (7.4-10.4); Platelet Count 203 thou/uL (130-400); RBC Distribution Width 13.4 % (11.5-14.5); Red Blood Cell (RBC) Count 5.45 mill/uL (4.70-6.10); White Blood Cell (WBC) Count 7.9 thou/uL (4.8-10.8)
[2020-02-16 10:17] LABS: Bilirubin Negative (Negative); Blood, Urine Negative (Negative); Clarity Clear (Clear); Glucose, Urine (Dipstick) Negative (Negative); Ketone, Urine Negative (Negative); Leukocyte Negative (Negative); Nitrite Negative (Negative); Protein, Urine (Dipstick) Negative (Neg-Trace); Specific Gravity, Urine 1.023 (1.002-1.036); Urobilinogen 0.2 mg/dL (Less than 2); pH, Urine 5.5 (5.0-9.0)
[2020-02-16 10:32] LABS: ALT (SGPT) 24 U/L (8-55); AST (SGOT) 19 U/L (5-34); Albumin 3.8 g/dL (3.4-4.8); Alkaline Phosphatase 92 U/L (40-110); Anion Gap 14 mmol/L (10-20); BUN (Urea Nitrogen) 14 mg/dL (8.4-25.7); Bilirubin, Total 0.3 mg/dL (0.2-1.2); Calc. Creatinine Clearance 0 mL/min (70-130); Carbon Dioxide 25 mmol/L (23-31); Chloride 103 mmol/L (98-107); Estimated GFR-MDRD 65; Glucose 192 mg/dL (83-110); Magnesium 1.8 mg/dL (1.6-2.6); Potassium 4.4 mmol/L (3.5-5.1); Protein, Total 6.8 g/dL (5.8-8.1); Sodium 138 mmol/L (136-145)
[2020-02-16] MEDS ORDERED: HYDROcodone/Acetaminophen 10/325 mg Tablet ONE (11:34)
[2020-02-16] MEDS ORDERED: Acetaminophen 325 MG TAB ONE (11:40)
--- NOTE | 2020-02-16 11:45 | CT ---
CTA CHEST AND ABDOMEN FOLLOWING AORTOGRAM PROTOCOL WITH IV CONTRAST: Date: 02/16/2020 Axial tomograms obtained from aortic arch through aortic bifurcation following angio protocol with mu ltiplanar reconstruction and 3D postprocessing. INDICATION: Abdominal pain. Hypertension. Dissection protocol was requested. FINDINGS: The thoracic aorta shows no evidence of aneurysm. No significant atherosclerotic change. There is no dissection. Abdominal aorta shows mild atherosclerotic change. No evidence of aneurysm. No evidence of dissection . The aortic bifurcation and proximal common iliac arteries appear unremarkable. The aortic branches appear unremarkable, including celiac artery, superior mesenteric artery, both re nal arteries, and inferior mesenteric artery. Soft Tissues: The lungs show mild vascular engorgement. Hazy diffuse ground-glass opacity could represent mild yomaira a. No significant effusion. The pulmonary arteries are opacified and there is no evidence of pulmonary embolus to segmental level . The mediastinum is unremarkable. Liver, spleen, and pancreas unremarkable. Adrenal glands and kidneys show no acute process. Left raysa l cystic lesion measures 2.5 cm. Visualized bowel loops unremarkable. Degenerative spine changes are noted. Sagittal imaging of the sternum shows suggestion of a mid sternal fracture. This may represent motion artifact. Recommend clinical correlation regarding sternal pain. A focal area of sclerosis in a mid thoracic vertebra is nonspecific and may represent a focal bone island. There is an umbilical hernia with hernia sac measuring up to 4.0 cm width. Degenerative spine changes result in severe central canal stenosis at the L4-5 level. IMPRESSION: 1. No evidence of thoracic or abdominal aortic aneurysm or dissection. 2. Cardiomegaly with mild vascular engorgement. Nonspecific ground-glass opacity in both lungs. 3. Nonacute findings as detailed above. POS: [facility]
[2020-02-16] MEDS ORDERED: Dexamethasone 4 MG TAB ONE (11:55)
== END 2020-02-16 12:33 | disposition home or self-care (01) ==
LOC: MADERS 09:21
DX: K42.9 Umbilical hernia without obstruction or gangrene (principal); M79.604 Pain in right leg; M79.605 Pain in left leg; R11.2 Nausea with vomiting, unspecified; E78.5 Hyperlipidemia, unspecified; E66.9 Obesity, unspecified; I11.0 Hypertensive heart disease with heart failure; I50.9 Heart failure, unspecified; E11.9 Type 2 diabetes mellitus without complications; J44.9 Chronic obstructive pulmonary disease, unspecified; M10.9 Gout, unspecified; Z79.899 Other long term (current) drug therapy; Z79.01 Long term (current) use of anticoagulants; Z79.4 Long term (current) use of insulin
CPT/HCPCS: 71275; 72191; 74175; 80053; 81003; 83735; 84484; 85025; 87086; 93005; J8540

== ENCOUNTER 2020-06-11 19:43 | Emergency (ER) | payer MEDICARE ==
--- NOTE | 2020-06-11 20:40 | RAD ---
RADIOGRAPH CHEST 1 VIEW: Date: 06-11-2020 Time: 8:04 P.M. HISTORY: 80-year-old male with cough COMPARISON: 04-06-2020 FINDINGS: Slighter greater degree of increased attenuation at the right lateral base on the current study alma delia red with previous. At least some of this is due to overlying soft tissues and body habitus. No cardio megaly, pulmonary edematous congestion, or pulmonary edema. No consolidation visualized elsewhere. No pneumothorax. Other than the right lateral base, no other potential interval change. IMPRESSION: 1. Increased attenuation at right lateral lung base: artifact versus infiltrate. 2. Otherwise negative. JN POS: [facility]
[2020-06-11 22:24] LABS: Base Excess-Venous 0.9 mmol/L (-2.0 to 3.0); Bicarbonate (HCO3v) 26.1 mmol/L (22.0-28.0); CO2 Tension (PvCO2) 42.7 mmHg (40.0-50.0); Calcium, Ionized 1.18 mmol/L (1.15-1.33); Chloride 100 mmol/L (98-107); Hemoglobin - Calc 15.2 g/dL (14.0-18.0); Potassium 4.4 mmol/L (3.5-5.1); Sodium 137 mmol/L (138-145); T. Carbon Dioxide 27.4 mmol/L (22.0-28.0); vO2 Saturation-calc 92.6 % (60.0-85.0)
[2020-06-11 23:11] LABS: Clarity Clear (Clear)
[2020-06-11 23:12] LABS: Glucose, Urine (Dipstick) 500 mg/dL (Negative); Ketone, Urine Negative (Negative); Leukocyte Small (Negative); Nitrite Positive (Negative); Protein, Urine (Dipstick) Negative (Neg-Trace); Urobilinogen 0.2 mg/dL (Less than 2)
[2020-06-11 23:13] LABS: Bilirubin Negative (Negative); Blood, Urine 1+ (Negative)
[2020-06-11 23:28] LABS: Bacteria/HPF 1+ HPF (None Seen)
[2020-06-11] MEDS ORDERED: Sodium Chloride 0.9% 100 ML ONE (23:28)
[2020-06-11] MEDS ORDERED: Sodium Chloride 0.9% 250 ML 250 ML ONE (23:28)
[2020-06-11] MEDS ORDERED: Azithromycin 500 MG VIAL ONE (23:28)
[2020-06-11] MEDS ORDERED: methylPREDNISolone Sod Succ/PF 125 MG/2 ML VIAL ONE (23:28)
[2020-06-11] MEDS ORDERED: cefTRIAXone\\ROCEPHIN 1 GM VIAL ONE (23:28)
[2020-06-11 23:29] LABS: Mucous/LPF 1+ LPF (<2+)
[2020-06-12 00:26] LABS: Carbon Dioxide 23 mmol/L (23-31); Chloride 99 mmol/L (98-107); Potassium 4.5 mmol/L (3.5-5.1); Sodium 133 mmol/L (136-145)
[2020-06-12 00:27] LABS: BUN (Urea Nitrogen) 24 mg/dL (8.4-25.7); Calc. Creatinine Clearance 0 mL/min (70-130); Estimated GFR-MDRD 55; Glucose 324 mg/dL (83-110)
[2020-06-12 00:28] LABS: Albumin 3.8 g/dL (3.4-4.8); Bilirubin, Total 0.2 mg/dL (0.2-1.2); Protein, Total 7.5 g/dL (5.8-8.1)
[2020-06-12 00:29] LABS: ALT (SGPT) 14 U/L (8-55); AST (SGOT) 17 U/L (5-34); Alkaline Phosphatase 88 U/L (40-110); CK (CPK) 102 U/L (30-200); Lipase 49 U/L (8-78)
[2020-06-12 01:56] LABS: Hemoglobin 13.5 g/dL (14.0-18.0); Manual Diff?? YES; Mean Corpuscular HGB CONC 30.7 g/dL (32.0-36.0); Mean Corpuscular Hemoglobin 27.4 pg (27.0-31.0); Mean Corpuscular Volume 89.3 fL (78.0-98.0); Mean Platelet Volume 11.5 fL (7.4-10.4); Platelet Count 167 thou/uL (130-400); RBC Distribution Width 13.4 % (11.5-14.5); Red Blood Cell (RBC) Count 4.92 mill/uL (4.70-6.10); White Blood Cell (WBC) Count 7.8 thou/uL (4.8-10.8)
[2020-06-12 01:57] LABS: Band 2 % (5-11); Lymphocytes 25 % (21-51); MDiff Complete? YES; Neutrophil 59 % (42-75)
[2020-06-12 01:58] LABS: Eosinophils 2 % (0-10); Monocytes 6 % (0-10); Reactive Lymphocytes 5 % (0-10)
[2020-06-12 23:25] LABS: Anion Gap 16 mmol/L (10-20)
== END 2020-06-12 01:19 | disposition home or self-care (01) ==
LOC: MADERS 19:43
DX: N30.00 Acute cystitis without hematuria (principal); J44.1 Chronic obstructive pulmonary disease with (acute) exacerbation; E78.5 Hyperlipidemia, unspecified; E78.00 Pure hypercholesterolemia, unspecified; E66.01 Morbid (severe) obesity due to excess calories; E11.9 Type 2 diabetes mellitus without complications; I10 Essential (primary) hypertension; Z79.01 Long term (current) use of anticoagulants; Z79.899 Other long term (current) drug therapy
CPT/HCPCS: 36416; 71045; 80053; 81003; 81015; 82330; 82550; 82803; 83605; 83690; 84484; 85025; 93005; 96365; 96367; 96375; J0456; J0696; J2930; J3490; J7050

== ENCOUNTER 2020-06-23 21:58 | Emergency (ER) | payer MEDICARE ==
--- NOTE | 2020-06-23 22:40 | CT ---
Exam: Chest CT without contrast HISTORY: Low O2 saturation on room air. Cough and shortness of breath. COMPARISON: CT aortic dissection protocol 02/16/2020 FINDINGS: Lower neck:: Asymmetric enlargement right thyroid lobe, incompletely evaluated on mediastinum: Limite d evaluation by the absence of IV contrast. No mass, lymphadenopathy or hematoma HEART: Normal size. No pericardial effusion Aorta: No evidence of aneurysmal dilatation Subdiaphragmatic structures: No acute abnormality Trachea and central bronchi: Patent LUNGS: Persistent multi lobar groundglass opacities. The degree of groundglass opacification has sign ificantly progressed when compared to the previous examination. Distribution is predominantly peripheral. Correlate for COVID 19 pneumonia. No significant consolidation with air bronchograms. Pleural effusion: None Pneumothorax: None Osseous structures: No acute abnormality IMPRESSION: Increased groundglass opacities throughout the lung parenchyma with a predominate peripheral distribu tion. Correlate for COVID 19 pneumonia.
[2020-06-23 22:56] LABS: Albumin Less than 1.0 g/dL (3.4-4.8)
[2020-06-23] MEDS ORDERED: Vancomycin HCl 500 MG VIAL ONE (23:00)
[2020-06-23] MEDS ORDERED: Vancomycin 1.5 GRAM/300 ML BAG ONE (23:01)
[2020-06-23] MEDS ORDERED: Sodium Chloride 0.9% 100 ML ONE ×2 (23:01→23:05)
[2020-06-23] MEDS ORDERED: Azithromycin 500 MG VIAL ONE (23:05)
[2020-06-23] MEDS ORDERED: Sodium Chloride 0.9% 250 ML 500 ML ONE (23:08)
[2020-06-24] MEDS ORDERED: Insulin Regular 300 UNITS/3 ML VIAL ONE (00:40)
[2020-06-24 01:02] LABS: Hemoglobin 13.4 g/dL (14.0-18.0); White Blood Cell (WBC) Count 7.7 thou/uL (4.8-10.8)
[2020-06-24 01:03] LABS: Mean Corpuscular HGB CONC 31.3 g/dL (32.0-36.0); Mean Corpuscular Hemoglobin 27.8 pg (27.0-31.0); Mean Corpuscular Volume 88.7 fL (78.0-98.0); Mean Platelet Volume 11.9 fL (7.4-10.4); Platelet Count 119 thou/uL (130-400); RBC Distribution Width 13.2 % (11.5-14.5)
[2020-06-24 01:04] LABS: MDiff Complete? YES; Manual Diff?? NO
[2020-06-24 01:05] LABS: #Lymphocytes 1.8 thou/uL (1.20-3.40); #Neutrophils 5.4 thou/uL (1.40-6.50); %Lymphocytes 23.3 % (21.0-51.0); %Monocytes 5.7 % (0.0-10.0)
[2020-06-24 01:06] LABS: Reflex for Review?? YES
[2020-06-24 01:07] LABS: Poikilocytosis SLIGHT = 6-15 cells (100X) (0-5/hpf)
[2020-06-24 01:11] LABS: Base Excess-Venous 0.8 mmol/L (-2.0 to 3.0); Bicarbonate (HCO3v) 27.1 mmol/L (22.0-28.0); CO2 Tension (PvCO2) 48.4 mmHg (40.0-50.0); Hemoglobin - Calc 14.7 g/dL (14.0-18.0); Sodium 140 mmol/L (138-145); vO2 Saturation-calc 99.4 % (60.0-85.0)
[2020-06-24 01:12] LABS: Calcium, Ionized 1.08 mmol/L (1.15-1.33); Chloride 102 mmol/L (98-107); T. Carbon Dioxide 28.6 mmol/L (22.0-28.0)
[2020-06-24 01:16] LABS: Sodium 138 mmol/L (136-145)
[2020-06-24 01:17] LABS: Carbon Dioxide 23 mmol/L (23-31); Chloride 103 mmol/L (98-107)
[2020-06-24 01:20] LABS: Bilirubin, Total 0.6 mg/dL (0.2-1.2); Calcium 8.4 mg/dL (7.8-10.44)
[2020-06-24 01:21] LABS: Protein, Total 6.6 g/dL (5.8-8.1)
[2020-06-24 01:22] LABS: Alkaline Phosphatase 70 U/L (40-110); Globulin 3.3 g/dL (2.4-3.5)
[2020-06-24 01:23] LABS: AST (SGOT) 21 U/L (5-34)
[2020-06-24 01:24] LABS: ALT (SGPT) 19 U/L (8-55); Magnesium 1.9 mg/dL (1.6-2.6)
[2020-06-24 01:59] LABS: Bilirubin Negative (Negative); Blood, Urine Small (Negative); Clarity Cloudy (Clear); Glucose, Urine (Dipstick) >=1000 mg/dL (Negative); Ketone, Urine 15 mg/dL (Negative); Leukocyte Trace (Negative); Nitrite Positive (Negative); Protein, Urine (Dipstick) 100 mg/dL (Neg-Trace); Urobilinogen 0.2 mg/dL (Less than 2); pH, Urine 5.5 (5.0-9.0)
[2020-06-24 02:09] LABS: Specific Gravity, Urine 1.028 (1.002-1.036)
[2020-06-24 02:13] LABS: Bacteria/HPF 3+ HPF (None Seen); Squamous Epithelial 0-3 HPF (0-3)
[2020-06-24 07:35] LABS: Platelet Morphology Comment Appears Decreased
[2020-06-24 08:22] LABS: Anion Gap 16 mmol/L (10-20)
[2020-06-24 08:23] LABS: BUN (Urea Nitrogen) 15 mg/dL (8.4-25.7)
[2020-06-24 08:26] LABS: Glucose 377 mg/dL (83-110)
== END 2020-06-24 01:44 | disposition short-term general hospital (02) ==
LOC: MADERS 21:58
DX: A40.3 Sepsis due to Streptococcus pneumoniae (principal); R09.02 Hypoxemia; E11.65 Type 2 diabetes mellitus with hyperglycemia; M10.9 Gout, unspecified; N40.0 Benign prostatic hyperplasia without lower urinary tract symptoms; E11.9 Type 2 diabetes mellitus without complications; E78.5 Hyperlipidemia, unspecified; E78.00 Pure hypercholesterolemia, unspecified; J44.9 Chronic obstructive pulmonary disease, unspecified; I11.0 Hypertensive heart disease with heart failure; I50.9 Heart failure, unspecified; E66.9 Obesity, unspecified
CPT/HCPCS: 36416; 71250; 80053; 81003; 81015; 82330; 82435; 82803; 83605; 83735; 83880; 84132; 84295; 84484; 85014; 85025; 87040; 87077; 87086; 87186; 87804; 93005; 94760; 96365; 96367; J0456; J1815; J3370; J3490; J7050

== ENCOUNTER 2020-07-28 12:53 | Emergency (ER) | payer MEDICARE ==
[~2020-07-28 12:53] MED LIST changes: -Sodium Chloride 0.9% 1,000 ML BAG ONE; +Sodium Chloride 0.9% 100 ML BAG ONE
[2020-07-28] MEDS ORDERED: Diltiazem 125 MG/25 ML ONE (13:06)
--- NOTE | 2020-07-28 13:28 | RAD ---
RADIOGRAPH CHEST 1 VIEW: DATE: 07/28/2020 TIME: 1:22 PM HISTORY: 80-year-old male with dyspnea COMPARISON: 07/21/2020 FINDINGS: Again noted are the heterogeneously distributed bilateral patchy mixed interstitial and alveolar infi ltrates. The largest most confluent region is in the right upper lobe. Cardiomegaly. No pneumothorax. No interval change. IMPRESSION: No interval change in moderate-severe bilateral pneumonia
[2020-07-28] MEDS ORDERED: Metoprolol Tartrate 5 MG/5 ML VIAL ONE ×4 (13:52→16:48)
[2020-07-28 14:02] LABS: #Basophils 0.1 thou/uL (0.0-0.2); #Eosinphils 0.1 thou/uL (0.0-0.7); #Lymphocytes 1.7 thou/uL (1.20-3.40); #Monocytes 0.8 thou/uL (0.11-0.59); %Basophils 0.7 % (0.0-1.0); %Eosinophils 1.1 % (0.0-10.0); %Lymphocytes 13.2 % (21.0-51.0); Hemoglobin 15.4 g/dL (14.0-18.0); Mean Corpuscular HGB CONC 31.3 g/dL (32.0-36.0); Mean Corpuscular Hemoglobin 27.9 pg (27.0-31.0); Mean Corpuscular Volume 88.9 fL (78.0-98.0); Mean Platelet Volume 9.2 fL (7.4-10.4); Platelet Count 219 thou/uL (130-400); RBC Distribution Width 13.4 % (11.5-14.5); Red Blood Cell (RBC) Count 5.53 mill/uL (4.70-6.10); White Blood Cell (WBC) Count 12.7 thou/uL (4.8-10.8)
[2020-07-28 14:23] LABS: ALT (SGPT) 41 U/L (8-55); AST (SGOT) 19 U/L (5-34); Albumin 3.2 g/dL (3.4-4.8); Alkaline Phosphatase 86 U/L (40-110); Anion Gap 27 mmol/L (10-20); BUN (Urea Nitrogen) 17 mg/dL (8.4-25.7); Bilirubin, Total 0.9 mg/dL (0.2-1.2); Calc. Creatinine Clearance 0 mL/min (70-130); Calcium 8.4 mg/dL (7.8-10.44); Carbon Dioxide 20 mmol/L (23-31); Chloride 100 mmol/L (98-107); Globulin 3.1 g/dL (2.4-3.5); Glucose 136 mg/dL (83-110); Potassium 4.7 mmol/L (3.5-5.1); Protein, Total 6.3 g/dL (5.8-8.1); Sodium 142 mmol/L (136-145)
[2020-07-28] MEDS ORDERED: Cefepime 2 GM VIAL ONE (14:48)
[2020-07-28] MEDS ORDERED: Enoxaparin Sodium 100 MG/ML SYRINGE ONE (16:06)
[2020-07-28] MEDS ORDERED: Enoxaparin Sodium 30 MG/0.3 ML SYRINGE ONE (16:06)
== END 2020-07-28 17:04 | disposition short-term general hospital (02) ==
LOC: MADERS 12:53
DX: A41.9 Sepsis, unspecified organism (principal); R65.20 Severe sepsis without septic shock; J96.90 Respiratory failure, unspecified, unspecified whether with hypoxia or hypercapnia; I48.91 Unspecified atrial fibrillation; J44.0 Chronic obstructive pulmonary disease with (acute) lower respiratory infection; J18.9 Pneumonia, unspecified organism; M10.9 Gout, unspecified; I11.0 Hypertensive heart disease with heart failure; I50.9 Heart failure, unspecified; N40.0 Benign prostatic hyperplasia without lower urinary tract symptoms; E78.5 Hyperlipidemia, unspecified; E78.00 Pure hypercholesterolemia, unspecified; E11.9 Type 2 diabetes mellitus without complications; E66.9 Obesity, unspecified
CPT/HCPCS: 36415; 71045; 80053; 83605; 83880; 84443; 84484; 85025; 85379; 87040; 93005; 94660; 94760; J0692; J1650; J3370; J3490